=== PATIENT | female | born 1995 | race American Indian/Alaskan Native ===

== ENCOUNTER 2017-10-30 12:08 | Outpatient (CLI) | payer MEDICAID ==
[2017-10-30 12:38] VITALS: BP 124/83
[2017-10-30] MEDS ORDERED: LACTATED RINGERS 500 ML IV ONE (12:54)
[2017-10-30 13:18] LABS: Bacteria,Urine 1+ /HPF (Negative); Bilirubin,Urine NEG (Negative); Blood,Urine NEG (Negative); Ketones,Urine 20 mg/dL (Negative); Leukocyte Esterase,Urine NEG (Negative); Mucus,Urine 3+ /HPF; Nitrite,Urine NEG (Negative); Protein,Urine <15 mg/dL mg/dL (Negative)
--- NOTE | 2017-10-30 14:11 | Ultrasound Report ---
FINAL REPORT EXAM: US OB LIMITED HISTORY: WELLBEING TECHNIQUE: Ultrasound evaluation of the gravid uterus PRIORS: None. FINDINGS: Limited evaluation demonstrating cephalic position fetus. Single live intrauterine with cardiac activity documented 144 beats per minute. Anterior position of placenta in visible portion. Only 2 static images presented for interpretation, 1 of lie and the other of heart rate. IMPRESSION: Single viable intrauterine with cephalic position
== END 2017-10-30 14:15 | disposition home or self-care (01) ==
LOC: TRG 12:08
PROVIDERS: ATTEND Obstetrics & Gynecology
DX: O47.02 False labor before 37 completed weeks of gestation, second trimester (principal); Z3A.20 20 weeks gestation of pregnancy
CPT/HCPCS: 76815; 81001

== ENCOUNTER 2017-11-25 21:56 | Outpatient (CLI) | payer MEDICAID ==
[2017-11-25] MEDS ORDERED: LACTATED RINGERS 500 ML IV ONE (22:39)
[2017-11-25 23:43] LABS: Basophils # (Auto) 0.1 K/mm3 (0.0-0.1); Basophils % (Auto) 0.4 % (0.0-1.8); Eosinophils # (Auto) 0.4 K/mm3 (0.0-0.4); Eosinophils % (Auto) 2.5 % (0.0-4.3); Hematocrit 34.5 % (30.3-42.9); Lymphocytes # (Auto) 2.2 K/mm3 (1.2-5.4); Lymphocytes % (Auto) 15.1 % (13.4-35.0); Mean Corpuscular HGB Conc 32 % (30-34); Mean Corpuscular Volume 76 fl (79-97); Monocytes # (Auto) 0.8 K/mm3 (0.0-0.8); Monocytes % (Auto) 5.2 % (0.0-7.3); Platelet Count 232 K/mm3 (140-440); Red Blood Count 4.58 M/mm3 (3.65-5.03); Red Cell Distribution Width 14.9 % (13.2-15.2)
[2017-11-25 23:50] LABS: Bilirubin,Urine NEG (Negative); Blood,Urine NEG (Negative); Color,Urine Yellow (Yellow); Mean Corpuscular Hemoglobin 24 pg (28-32); Mucus,Urine FEW /HPF; Nitrite,Urine NEG (Negative); Protein,Urine <15 mg/dL mg/dL (Negative); WBC,Urine < 1.0 /HPF (0.0-6.0)
[2017-11-26 00:05] LABS: BUN/Creatinine Ratio 18; Blood Urea Nitrogen 7 mg/dL (7-17); Calcium 8.3 mg/dL (8.4-10.2); Hemolysis Index 241
[2017-11-26 00:52] VITALS: BP 117/68
== END 2017-11-26 01:18 | disposition home or self-care (01) ==
LOC: TRG 21:56
PROVIDERS: ATTEND Obstetrics & Gynecology
DX: O26.892 Other specified pregnancy related conditions, second trimester (principal); R51 Headache; H53.8 Other visual disturbances; Z3A.24 24 weeks gestation of pregnancy
CPT/HCPCS: 36415; 59025; 80048; 81001; 85025; 96360; 96361; J7120

== ENCOUNTER 2017-12-20 11:14 | Emergency (ER) | payer MEDICAID ==
[2017-12-20 11:25] VITALS: BP 129/82
== END 2017-12-20 12:15 ==
LOC: ED 11:14
DX: M79.1 Myalgia (principal); Z53.21 Procedure and treatment not carried out due to patient leaving prior to being seen by health care provider

== ENCOUNTER 2018-02-26 16:43 | Observation (INO) | payer MEDICAID ==
[2018-02-26] MEDS ORDERED: COLACE PO PRN (17:01)
--- NOTE | 2018-02-26 17:16 | History and Physical Report ---
History of Present Illness Date of examination: 02/26/18 Date of admission: 02/26/18 16:43 Chief complaint: Direct admit to L &D for elevation of BP History of present illness: This is a 22 yo EDC 04/03/18 here as a direct admit from [facility] per Dr. Washburn. She was seen in the clinic and was told to come to hospital for direct admission for elevated BP 150/90s. Past History Past Medical History: asthma, hypertension, hematologic disorders (leukenia in remission) Past Surgical History: tonsillectomy Family/Genetic History: diabetes Social history: no significant social history, single. denies: smoking, alcohol abuse, prescription drug abuse - Obstetrical History Expected Date of Delivery: 04/03/18 Actual Gestation: 34 Week(s) 6 Day(s) : 2 Para: 0 Hx # Term Pregnancies: 0 Number of Pregnancies: 0 Spontaneous Abortions: 0 Number of Living Children: 0 Medications and Allergies Allergies Allergy/AdvReac Type Severity Reaction Status Date / Time No Known Allergies Allergy Verified 12/20/17 11:23 Active Meds: Active Medications Acetaminophen (Tylenol) 650 mg PO Q4H PRN PRN Reason: Pain MILD(1-3)/Fever >100.5/DOMINGUEZ Betamethasone Acet/Betameth SodPhos (Celestone Soluspan) 12 mg IM Q24HR BUBBA Stop: 02/27/18 10:01 Docusate Sodium (Colace) 100 mg PO Q12H PRN PRN Reason: Constipation Lactated Ringer's (Lactated Ringers) 1,000 mls @ 125 mls/hr IV DIRECT BUBBA Lactated Ringer's (Lactated Ringers) 1,000 mls @ 125 mls/hr IV DIRECT BUBBA Multivitamins/Iron/Calcium ( Vitamin) 1 each PO QDAY BUBBA Review of Systems All systems: negative - Vital Signs Vital signs: Vital Signs Pulse BP 93 H 121/74 02/26/18 17:02 02/26/18 17:02 Temp Pulse Resp BP Pulse Ox 82 121/74 100 02/26/18 17:11 02/26/18 17:02 02/26/18 17:11 - Physical Exam Breasts: Positive: deferred Cardiovascular: Regular rate, Normal S1 Lungs: Positive: Clear to auscultation, Normal air movement Abdomen: Positive: normal appearance, soft, normal bowel sounds. Negative: distention, tenderness, guarding Genitourinary (Female): Positive: normal external genitalia, normal perenium Vulva: both: normal Vagina: Positive: normal moisture Uterus: Positive: normal size Anus/Rectum: Positive: normal perianal skin Extremities: Positive: normal Deep Tendon Reflex Grade: Normal +2 - Obstetrical FHR: auscultation normal Results All other labs normal. Assessment and Plan A/P IUP 34 weeks with HTN admitted with PIH w/u and [address] Washburn bedrest with BP checked in sitting position strict I and Os steroids for lung maturity ( Beta x2 ) NIcu consult
[2018-02-26 17:49] LABS: Basophils % (Auto) 0.3 % (0.0-1.8); Eosinophils # (Auto) 0.1 K/mm3 (0.0-0.4); Eosinophils % (Auto) 0.9 % (0.0-4.3); Hematocrit 32.8 % (30.3-42.9); Lymphocytes # (Auto) 1.7 K/mm3 (1.2-5.4); Lymphocytes % (Auto) 16.4 % (13.4-35.0); Mean Corpuscular HGB Conc 34 % (30-34); Mean Corpuscular Volume 72 fl (79-97); Monocytes # (Auto) 0.6 K/mm3 (0.0-0.8); Monocytes % (Auto) 5.3 % (0.0-7.3); Platelet Count 193 K/mm3 (140-440); Red Blood Count 4.55 M/mm3 (3.65-5.03); Red Cell Distribution Width 15.9 % (13.2-15.2)
[2018-02-26 17:50] LABS: Mean Corpuscular Hemoglobin 24 pg (28-32)
[2018-02-26] MEDS ORDERED: LACTATED RINGERS 1,000 ML IV SCH (18:00)
[2018-02-26 18:16] LABS: Alanine Aminotransferase 8 units/L (7-56)
[2018-02-26 18:30] LABS: Uric Acid 4.8 mg/dL (3.5-7.6)
[2018-02-26] MEDS: CELESTONE SOLUSPAN IM SCH (18:56)
[2018-02-26] MEDS: TYLENOL PO PRN (21:51)
[2018-02-27] MEDS: TYLENOL PO PRN (05:26)
--- NOTE | 2018-02-27 08:43 | Progress Note ---
Assessment and Plan A/P HD#2 IUP 34+1 weeks with HTN 24 hr urine collection current bedrest with BP checked in sitting position strict I and Os steroids for lung maturity ( Beta x2 ) NIcu consult BP normal range PIH labs neg Subjective - Subjective Date of service: 02/27/18 Principal diagnosis: Hypertension in Interval history: This is a 22 yo EDC 04/03/18 here as a direct admit from [facility] per Dr. Washburn. She was seen in the clinic and was told to come to hospital for direct admission for elevated BP 150/90s. Patient reports: movement normal, no new complaints, no loss of fluid, no vaginal bleeding, no contractions Objective - Vital Signs Vital Signs: Vital Signs - 12hr 02/26/18 02/27/18 02/27/18 22:57 01:58 01:59 Pulse Rate 91 H 85 82 Blood Pressure 130/79 123/74 O2 Sat by Pulse 98 Oximetry 02/27/18 02/27/18 02/27/18 02:03 02:08 02:13 Pulse Rate 73 81 78 Blood Pressure O2 Sat by Pulse 97 97 97 Oximetry 02/27/18 02/27/18 02/27/18 02:18 02:23 02:28 Pulse Rate 70 73 71 Blood Pressure O2 Sat by Pulse 97 97 98 Oximetry 02/27/18 02/27/18 02/27/18 02:33 02:36 02:38 Pulse Rate 76 52 L 71 Blood Pressure O2 Sat by Pulse 96 79 L 99 Oximetry 02/27/18 02/27/18 02/27/18 02:43 02:48 02:53 Pulse Rate 70 74 78 Blood Pressure O2 Sat by Pulse 98 97 97 Oximetry 02/27/18 02/27/18 02/27/18 02:58 03:03 03:08 Pulse Rate 74 73 74 Blood Pressure O2 Sat by Pulse 97 97 97 Oximetry 02/27/18 02/27/18 02/27/18 03:13 03:18 03:23 Pulse Rate 75 73 80 Blood Pressure O2 Sat by Pulse 97 97 97 Oximetry 02/27/18 02/27/18 02/27/18 03:28 03:33 03:44 Pulse Rate 69 66 77 Blood Pressure O2 Sat by Pulse 98 98 97 Oximetry 02/27/18 02/27/18 02/27/18 03:48 03:49 03:54 Pulse Rate 82 78 65 Blood Pressure O2 Sat by Pulse 85 99 99 Oximetry 02/27/18 02/27/18 02/27/18 03:59 04:04 04:09 Pulse Rate 66 70 67 Blood Pressure O2 Sat by Pulse 99 98 98 Oximetry 02/27/18 02/27/18 02/27/18 04:14 04:19 04:24 Pulse Rate 70 65 75 Blood Pressure O2 Sat by Pulse 99 98 99 Oximetry 02/27/18 02/27/18 02/27/18 04:29 04:34 04:39 Pulse Rate 74 65 69 Blood Pressure O2 Sat by Pulse 99 98 100 Oximetry 02/27/18 02/27/18 02/27/18 04:44 04:49 04:54 Pulse Rate 76 70 72 Blood Pressure O2 Sat by Pulse 98 98 99 Oximetry 02/27/18 02/27/18 02/27/18 04:59 05:04 05:09 Pulse Rate 66 69 71 Blood Pressure O2 Sat by Pulse 99 100 99 Oximetry 02/27/18 02/27/18 02/27/18 05:14 05:19 05:24 Pulse Rate 75 71 77 Blood Pressure O2 Sat by Pulse 99 99 99 Oximetry 02/27/18 02/27/18 02/27/18 05:29 05:34 05:39 Pulse Rate 76 72 66 Blood Pressure O2 Sat by Pulse 100 99 99 Oximetry 02/27/18 02/27/18 02/27/18 05:44 05:49 05:54 Pulse Rate 70 68 78 Blood Pressure O2 Sat by Pulse 98 98 99 Oximetry 02/27/18 02/27/18 05:59 06:04 Pulse Rate 68 73 Blood Pressure O2 Sat by Pulse 98 99 Oximetry - Exam Breasts: normal Cardiovascular: Regular rate, Normal S1 Lungs: Clear to auscultation, Normal air movement Abdomen: Present: normal appearance, soft, normal bowel sounds. Absent: distention, tenderness, guarding Uterus: Present: normal, firm. Absent: bogginess, tenderness FHR: auscultation normal, category 1 - Labs Labs: Abnormal Labs 02/26/18 02/26/18 17:20 17:39 MCV 72 L MCH 24 L RDW 15.9 H Seg Neutrophils % 77.1 H Seg Neutrophils # 8.2 H Creatinine 0.5 L Lactate Dehydrogenase 250 H Laboratory Results - last 24 hr 02/26/18 02/26/18 02/26/18 17:17 17:20 17:39 WBC 10.6 RBC 4.55 Hgb 11.0 Hct 32.8 MCV 72 L MCH 24 L MCHC 34 RDW 15.9 H Plt Count 193 Lymph % (Auto) 16.4 Converse % (Auto) 5.3 Eos % (Auto) 0.9 Baso % (Auto) 0.3 Lymph # 1.7 Converse # 0.6 Eos # 0.1 Baso # 0.0 Seg Neutrophils % 77.1 H Seg Neutrophils # 8.2 H Creatinine 0.5 L Estimated GFR > 60 Uric Acid 4.8 AST 16 ALT 8 Lactate Dehydrogenase 250 H Blood Type O NEGATIVE Antibody Screen Positive Antibody Identification Anti-D (Passively Aquired)
[2018-02-27] MEDS ORDERED: PRENATAL VITAMIN PO SCH (10:00)
[2018-02-27] MEDS: LACTATED RINGERS 1,000 ML IV SCH (14:55)
[2018-02-27] MEDS: CELESTONE SOLUSPAN IM SCH (19:54)
[2018-02-28 00:03] LABS: Creatinine,Urine 117.9 mg/dL (0.1-20.0)
[2018-02-28 00:06] LABS: Creatinine 24 Hour,Urine 1.7 (0.8-2.8)
[2018-02-28 00:08] LABS: Creatinine,Urine 117.9 mg/dL (0.1-20.0)
[2018-02-28] MEDS: LACTATED RINGERS 1,000 ML IV SCH (01:59)
--- NOTE | 2018-02-28 07:13 | Progress Note ---
Assessment and Plan A/P HD#3 IUP 34+2 weeks with HTN 24 hr urine 224 PIH labs neg BP 120-130/70-80s ( no meds) d/c home with f/u next week with every day BP checks at convenient location PIH w/u weekly s/p bmz x2 steroids discussed case with Dr. joyce may be discharged home Subjective - Subjective Date of service: 02/28/18 Principal diagnosis: Hypertension in Interval history: This is a 22 yo EDC 04/03/18 here as a direct admit from [facility] per Dr. Washburn. She was seen in the clinic and was told to come to hospital for direct admission for elevated BP 150/90s. Patient reports: movement normal, no new complaints, no loss of fluid, no vaginal bleeding, no contractions Objective - Vital Signs Vital Signs: Vital Signs - 12hr 02/27/18 02/27/18 02/27/18 19:44 19:50 19:55 Temperature 98.5 F Pulse Rate 86 86 89 Respiratory 16 Rate Blood Pressure 124/78 Blood Pressure 124/78 [Left] O2 Sat by Pulse 98 97 Oximetry 02/27/18 02/27/18 02/27/18 20:00 20:05 20:10 Temperature Pulse Rate 86 92 H 95 H Respiratory Rate Blood Pressure Blood Pressure [Left] O2 Sat by Pulse 97 97 97 Oximetry 02/27/18 02/27/18 02/27/18 20:15 20:20 20:25 Temperature Pulse Rate 86 87 86 Respiratory Rate Blood Pressure Blood Pressure [Left] O2 Sat by Pulse 97 97 99 Oximetry 02/27/18 02/27/18 02/27/18 20:30 20:35 20:40 Temperature Pulse Rate 90 91 H 88 Respiratory Rate Blood Pressure Blood Pressure [Left] O2 Sat by Pulse 98 98 98 Oximetry 02/27/18 02/27/18 02/27/18 20:45 20:50 20:55 Temperature Pulse Rate 88 82 93 H Respiratory Rate Blood Pressure Blood Pressure [Left] O2 Sat by Pulse 97 97 98 Oximetry 02/27/18 02/27/18 02/27/18 21:00 21:05 21:10 Temperature Pulse Rate 87 86 83 Respiratory Rate Blood Pressure Blood Pressure [Left] O2 Sat by Pulse 98 99 98 Oximetry 02/27/18 02/27/18 02/27/18 21:15 21:56 22:01 Temperature Pulse Rate 91 H 83 82 Respiratory Rate Blood Pressure Blood Pressure [Left] O2 Sat by Pulse 98 99 98 Oximetry 02/27/18 02/27/18 02/27/18 22:06 22:11 22:16 Temperature Pulse Rate 85 87 84 Respiratory Rate Blood Pressure Blood Pressure [Left] O2 Sat by Pulse 98 97 98 Oximetry 02/27/18 02/27/18 02/27/18 22:21 22:26 22:31 Temperature Pulse Rate 79 87 83 Respiratory Rate Blood Pressure Blood Pressure [Left] O2 Sat by Pulse 98 99 99 Oximetry 02/27/18 02/27/18 02/27/18 22:36 22:41 22:46 Temperature Pulse Rate 83 78 86 Respiratory Rate Blood Pressure Blood Pressure [Left] O2 Sat by Pulse 98 98 98 Oximetry 02/27/18 02/27/18 02/27/18 22:51 22:56 23:01 Temperature Pulse Rate 83 84 78 Respiratory Rate Blood Pressure Blood Pressure [Left] O2 Sat by Pulse 98 97 98 Oximetry 02/27/18 02/27/18 02/28/18 23:06 23:11 06:27 Temperature Pulse Rate 80 85 72 Respiratory Rate Blood Pressure Blood Pressure [Left] O2 Sat by Pulse 98 99 97 Oximetry 02/28/18 02/28/18 02/28/18 06:32 06:37 06:42 Temperature Pulse Rate 71 69 72 Respiratory Rate Blood Pressure Blood Pressure [Left] O2 Sat by Pulse 97 98 98 Oximetry 02/28/18 02/28/18 02/28/18 06:47 06:52 06:57 Temperature Pulse Rate 70 69 67 Respiratory Rate Blood Pressure Blood Pressure [Left] O2 Sat by Pulse 98 98 98 Oximetry 02/28/18 02/28/18 02/28/18 07:02 07:07 07:12 Temperature Pulse Rate 66 68 59 L Respiratory Rate Blood Pressure Blood Pressure [Left] O2 Sat by Pulse 98 98 97 Oximetry - Exam Breasts: deferred Cardiovascular: Regular rate, Normal S1 Lungs: Clear to auscultation, Normal air movement Abdomen: Present: normal appearance, soft, normal bowel sounds. Absent: distention, tenderness, guarding Uterus: Present: normal, firm. Absent: bogginess, tenderness FHR: category 1 Extremities: normal Deep Tendon Reflex Grade: Normal +2 - Labs Labs: Abnormal Labs 04/13/18 04/13/18 04/13/18 17:01 17:01 17:20 MCV 72 L MCH 24 L RDW 15.9 H Seg Neutrophils % 77.1 H Seg Neutrophils # 8.2 H Creatinine Lactate Dehydrogenase Urine Creatinine 117.9 H 117.9 H Ur Total Protein 24 Hr 224.00 H Urine Total Protein 16 H 02/26/18 17:39 MCV MCH RDW Seg Neutrophils % Seg Neutrophils # Creatinine 0.5 L Lactate Dehydrogenase 250 H Urine Creatinine Ur Total Protein 24 Hr Urine Total Protein Laboratory Results - last 24 hr 02/26/18 02/26/18 17:01 17:01 Urine Total Volume 1400 1400 Urine Creatinine 117.9 H 117.9 H Ur Creatinine 24 Hour 1.7 Height (in) 64.0 Weight (lb) 261.0 Ur Total Protein 24 Hr 224.00 H Urine Total Protein 16 H
--- NOTE | 2018-02-28 07:17 | Discharge Summary ---
Providers - Providers Date of Admission: 02/26/18 16:43 Date of discharge: 02/28/18 Attending physician: JOANNE HAHN Primary care physician: JOANNE HAHN Hospitalization Reason for admission: other (elevated BP ) Hospital course: tadeo admitted as direct admit from [facility]. She was evaluated and remained on bed rest. BP 120-130/80s. NST cat 1. Denied any preeclamptic sx. Urine 24 hr collection 224. PIH w/u neg. D/c on hopsital day 3 s/p bmz x2. Patient d/c home with f/u next week with daily BP check and appt with [facility] next week and Dr. Joanne Hahn . All questions answered Condition at discharge: Good Disposition: DC-01 TO HOME OR SELFCARE Plan - Provider Discharge Summary Activity: routine Diet: routine Instructions: routine Additional instructions: [] Smoking cessation referral if applicable(refer to patient education folder for contact #) [] Refer to [facility] Booklet Call your doctor immediately for: * Fever > 100.5 * Heavy vaginal bleeding ( >1 pad per hour) * Severe persistent headache * Shortness of breath * Reddened, hot, painful area to leg or breast * Drainage or odor from incision. * Keep incision clean and dry at all times and follow doctor's instructions regarding bathing/showering - Follow up plan Follow up: JOANNE HAHN MD [Primary Care Provider] - 7 Days
[2018-02-28 08:05] VITALS: BP 134/68
== END 2018-02-28 08:50 | disposition home or self-care (01) ==
LOC: INTOOBSV 16:43 → LD 16:43
PROVIDERS: ADMIT Obstetrics & Gynecology; ATTEND Obstetrics & Gynecology
DX: O13.3 Gestational [pregnancy-induced] hypertension without significant proteinuria, third trimester (principal); O99.513 Diseases of the respiratory system complicating pregnancy, third trimester; J45.909 Unspecified asthma, uncomplicated; Z3A.34 34 weeks gestation of pregnancy
CPT/HCPCS: 36415; 82565; 82570; 82575; 83615; 84156; 84450; 84460; 84550; 85025; 86850; 86870; 86900; 86901; 96360; 96361; 96372; G0378; G0379; J0702; J7120